=== PATIENT | female | born 1945 | race Hispanic/Latino ===

== ENCOUNTER → 2017-09-25 | Outpatient (CLI) | payer OTHER ==
[~2017-09-25] MED LIST: CIPRO500 MG PO; COZAAR25 MG PO; GABAPENTIN100 MG PO; INVANZ1 GM IV; LOVASTATIN40 MG PO; METFORMIN HCL500 MG PO; METOPROLOL TART25 MG PO; METRONIDAZOLE250 MG PO; METRONIDAZOLE500 MG PO; NORCO 10-325 T1 EACH PO; PANTOPRAZOLE SO40 MG PO; PIOGLITAZONE15 MG PO; POTASSIUM CHLO10 ME1 PO; SENNA LAX8.6 MG; SENNA LAXATIVE8.6 MG; ULTRAM50 MG PO; ZOFRAN ODT4 MG SL
--- NOTE | 2017-09-25 10:15 | Diagnostic Imaging Report ---
PROCEDURE:BARIUM ENEMA W/AIR C INDICATION:Diverticulitis. Preoperative planning. COMPARISON:Patients [facility], CT, CT ABDOMEN/PELVIS W, 08/19/2017, 22:40. TECHNIQUE:Routine double contrast barium enema. Fluoroscopy time: 5.1 minutes. Cumulative air kerma: 204.095 mGy FINDINGS: There is a redundant sigmoid colon with moderate associated diverticulosis predominantly in the proximal segment, with additional mild Diverticulosis extending to the level of the mid descending colon. There is no conspicuous fistula or perforation. Remaining portions of the descending and transverse colon are normal. Within the proximal aspect of the ascending colon (relative to the ileocecal valve) there is irregular retrograde filling with luminal narrowing as best seen on image 26 of 26 of the fluoroscopic images. This results in diluted contrast at the cecum seen on the overhead radiographs. CONCLUSION: 1. Sigmoid predominant diverticulosis without evidence of perforation or fistula. 2. There is irregular filling of the proximal aspect of the ascending colon suspicious for an underlying mass. This is approximately 7.5 cm from the distal aspect of the cecum as measured on the AP overhead radiograph. Images have been annotated in the PACS. Dictated by: Dyllan Trinh M.D. on 09/25/2017 at 10:24 Electronically approved by: Dyllan Trinh M.D. on 09/25/2017 at 10:24
== END ==
LOC: DX 07:17
PROVIDERS: ATTEND Surgery
DX: K57.92 Diverticulitis of intestine, part unspecified, without perforation or abscess without bleeding (principal)
CPT/HCPCS: 74280

== ENCOUNTER → 2021-01-13 | Outpatient (CLI) | payer MEDICARE ==
[~2021-01-13] MED LIST changes: +DIATRIZOATE MEGL/DIATRIZOA SOD 30 ML BTL PO ONE; +IOPAMIDOL 370 MG/ML 200 ML INFUS..BTL INJ ONE; +SODIUM CHLORIDE 0.9% 50ML 50 ML ONE
[2021-01-13 15:09] LABS: BLOOD UREA NITROGEN 17 mg/dL (7-26); BUN/CREATININE RATIO 25 (6-25); CREATININE, SERUM 0.68 mg/dL (0.57-1.11); EST GLOMERULAR FILTRATION RATE > 60 ML/MIN (60-)
== END ==
LOC: CT 14:23
PROVIDERS: ATTEND Family Medicine
DX: R10.31 Right lower quadrant pain (principal)
CPT/HCPCS: 36415; 74177; 82565; 84520; Q9967